=== PATIENT | female | born 1960 | race Caucasian/White ===

== ENCOUNTER → 2020-09-08 | Outpatient (CLI) | payer OTHER ==
--- NOTE | 2020-09-08 16:10 | RAD ---
XR CHEST 2V History: Reason: COUGH, HX OF COVID / Spl. Instructions: / History: Comparison: None. Findings: No consolidation or pleural effusion. Normal heart size. No pneumothorax. Impression: 1. No acute cardiopulmonary process. Electronically signed by: Jeremy Santacruz DO (09/08/2020 4:07 PM) [id number]
--- NOTE | 2020-09-10 12:46 | RAD ---
XR CHEST 2V History: Reason: COUGH, HX OF COVID / Spl. Instructions: / History: Comparison: None. Findings: No consolidation or pleural effusion. Normal heart size. No pneumothorax. Impression: 1. No acute cardiopulmonary process. MTDD
== END ==
LOC: DXRAD 11:55
PROVIDERS: ATTEND Nurse Practitioner Family
DX: R05 Cough (principal); Z86.16 Personal history of COVID-19
CPT/HCPCS: 71046